=== PATIENT | female | born 1965 | race Caucasian/White ===

== ENCOUNTER 2016-09-24 10:52 | Emergency (ER) | payer OTHER ==
[2016-09-24 10:53] VITALS: BP 141/84; PULSE 80; RESP 14; TEMP 98; O2SAT 98
[2016-09-24] MEDS ORDERED: FLUORESCEIN SOD 1 MG STRIP RIGHT EYE ONE (11:15)
[2016-09-24] MEDS ORDERED: PROPARACAINE HCL 0.5% OPHT SOLN 15 ML BTL LEFT EYE ONE (11:15)
--- NOTE | 2016-09-24 11:22 | PD ---
HPI Chief Complaint: Eye Problems/Injury Time Seen by Provider: 11:03 Travel History International Travel<30 days: No Contact w/Intl Traveler<30days: No Traveled to known affect area: No History of Present Illness HPI 50-year-old female presents the emergency Department with itching and burning and redness with tearing to the right thigh which started yesterday afternoon. Patient denies any specific trauma. She does not wear contacts. She has no upper respiratory symptoms. Eyes crusting this morning. She denies significant pain. She denies visual changes. Her only specific complaint is some mild photophobia this morning. She was seen by her family practice clinic and referred here for further evaluation and treatment. Her photophobia is mild she has no known drug allergies. [facility] Past Medical History Hypertension: Yes Past Surgical History Section: Yes Social History Alcohol Use: Yes (OCCASIONAL) Tobacco Use: Yes Substance Use: No Allergies-Medications (Allergen,Severity, Reaction): Coded Allergies: No Known Allergies (Verified Allergy, Mild, 11/05/06) Reported Meds & Prescriptions Reported Meds & Active Scripts Active Review of Systems General / Constitutional: No: Fever Eyes: Positive: Redness, Pain (mild burning.), Tearing, No: Diploplia, Blurred Vision, Photophobia, Drainage, Foreign Body Sensation, Blind Spots, Visual changes, Blindness HENT: No: Headaches, Sore Throat, Rhinitis, Rhinorrhea, Congestion, Nosebleed, Neck Stiffness, Neck Pain, Ear Discharge, Earache Cardiovascular: No: Chest Pain or Discomfort Respiratory: No: Shortness of Breath Gastrointestinal: No: Abdominal Pain Genitourinary: No: Dysuria Musculoskeletal: No: Pain Skin: No Rash Neurologic: No: Weakness Psychiatric: No: Depression Endocrine: No: Polydipsia Hematologic/Lymphatic: No: Easy Bruising Physical Exam Narrative GENERAL: Patient appears in no acute distress. SKIN: Warm and dry. Normal color. Normal turgor. No signs of rash. HEAD: Atraumatic. Normocephalic. EYES: Pupils equal and round. No scleral icterus. Moderate injection to the right thigh with mild watery drainage. No purulent drainage is noted. Photophobia is mild on exam. ENT: No nasal bleeding or discharge. Mucous membranes pink and moist. Pharynx clear. Airway patent. NECK: Trachea midline. Supple nontender without significant lymphadenopathy. CARDIOVASCULAR: Regular rate and rhythm. RESPIRATORY: No accessory muscle use. MUSCULOSKELETAL: Extremities without clubbing, cyanosis, or edema. No obvious deformities. NEUROLOGICAL: Awake and alert. No obvious cranial nerve deficits. Motor grossly within normal limits. Five out of 5 muscle strength in the arms and legs. Normal speech. PSYCHIATRIC: Appropriate mood and affect; insight and judgment normal. Data Data Last Documented VS Vital Signs Date Time Temp Pulse Resp B/P Pulse Ox O2 Delivery O2 Flow Rate FiO2 09/24/16 10:53 98.0 80 14 141/84 98 MDM Medical Decision Making Medical Screen Exam Complete: Yes Emergency Medical Condition: Yes Differential Diagnosis Acute iritis. Acute glaucoma. Conjunctivitis. Corneal abrasion. Corneal ulcer. Narrative Course Patient is medically stable at time of exam. Patient's right Eye is anesthetized with proparacaine drops and fluorescein dye is applied. Wood's lamp exam shows no obvious signs of corneal abrasion or ulceration. Patient is felt to have conjunctivitis. Patient is treated with Maxitrol ophthalmic drops every 4 hours while awake. Patient is to follow with her coping machine operator if symptoms do not improve or worsen in the next couple of days. Patient can always return to emergency department as needed. Diagnosis Primary Impression: Acute conjunctivitis, right eye Qualified Code: H10.31 - Acute conjunctivitis of right eye, unspecified acute conjunctivitis type Referrals: [employer]s Payable Lead Patient Instructions: Conjunctivitis (ED), General Instructions Additional Instructions: Wood's lamp exam shows no obvious signs of corneal abrasion or ulceration. Patient is felt to have conjunctivitis. Patient is treated with Maxitrol ophthalmic drops every 4 hours while awake. Patient is to follow with her coping machine operator if symptoms do not improve or worsen in the next couple of days. Patient can always return to emergency department as needed. Med/Other Pt SpecificInfo: Prescription(s) given Disposition: DISCHARGE HOME Condition: Stable Cuco Angel Sep 24, 2016 11:22
[2016-09-24] MEDS ORDERED: MAXI5O EACH EYE (11:23)
[2016-09-24] MEDS ORDERED: TRIA1TAB5 PO (11:30)
[2016-09-24] MEDS ORDERED: PAXI10TA2 PO (11:30)
[2016-09-24] MEDS ORDERED: VERA1TAB17 PO (11:30)
[2016-09-24] MEDS ORDERED: CETI1TAB53 PO (11:30)
== END 2016-09-24 11:48 | disposition home or self-care (01) ==
LOC: NEPD 10:52
DX: H10.31 Unspecified acute conjunctivitis, right eye (principal); H53.149 Visual discomfort, unspecified; I10 Essential (primary) hypertension; Z72.0 Tobacco use
CPT/HCPCS: 99283